=== PATIENT | female | born 1950 | race Caucasian/White ===

== ENCOUNTER → 2016-06-29 | Day surgery (SDC) | payer BC, OTHER ==
--- NOTE | 2016-06-30 13:17 | PATH ---
Cytology Non-Gynecological Report Patient Name: BRIAN BEAVER [facility]. Rec. #: [id number] /Age/Gender: 1950 (Age: 66) / F Account: [id number] Location: RADIOLOGY Taken: 06/29/2016 Received: 06/29/2016 Reported: 06/30/2016 Physicians: Sis Damon M.D. Specimen(s) Received LEFT THYROID FNA Clinical History Left thyroid nodule, 1.82 x 1.02 x 1.65 cm Final Diagnosis THYROID GLAND, LEFT LOBE, US GUIDED FINE NEEDLE ASPIRATION BIOPSY: SATISFACTORY FOR EVALUATION. NO MALIGNANT CELLS IDENTIFIED. 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 Comment: The smears and the cell block show scattered clusters of bland appearing follicular epithelial cells, some with Hurthle cell (oncocytic) change. Numerous macrophages are present, indicative of cystic change. Colloid is present. Electronically Signed Blu Vargas M.D. Gross Description Received are four air dried smears, four smears in 95% alcohol, and 20 cc of bloody fluid in formalin. Four diff-quik stained slides, four Pap stained slides and one cell block are made.
== END | disposition home or self-care (01) ==
LOC: JRADIR 08:21
PROVIDERS: ATTEND Family Medicine
PROC: 0G9G3ZX Drainage of Left Thyroid Gland Lobe, Percutaneous Approach, Diagnostic (ICD-10-PCS; principal; 2016-06-29)
PROC: BG44ZZZ Ultrasonography of Thyroid Gland (ICD-10-PCS; 2016-06-29)
DX: E04.1 Nontoxic single thyroid nodule (principal)
CPT/HCPCS: 76942; 88173; 88305-TC

== ENCOUNTER 2021-02-12 04:38 | Day surgery (SDC) | payer BC, OTHER ==
[2021-02-10 11:16] VITALS: BMI 36.6
[~2021-02-12 04:38] MED LIST: ACETAMINOPHEN 325 MG TABLET (FP) PO PRN; BSS (NA/CA/MG/K) BALANCED SALT SOLUTION OPHTH SOLN 15 ML BOTTLE OS ONE; CHONDROITIN SU A/HYALUR SOD 1 KIT IO ONE; EPINEPHrine/PF 1 MG/1 ML (1:1,000) AMPULE SQ ONE; LIDOCAINE HCL 1% PRESERVATIVE FREE - 30ML VIAL IO ONE; POVIDONE-IODINE 5% OPHTHALMIC PREP 30 ML SOLUTION OS ONE; TETRACAINE 0.5% OPHTH SOLN 2 ML BOTTLE OS ONE
[2021-02-12] MEDS ORDERED: LIDOCAINE HCL/PF 1% SDV 5ML VIAL ONE (07:33)
[2021-02-12] MEDS ORDERED: TETRACAINE 0.5% OPHTH SOLN 2 ML BOTTLE ONE (07:34)
[2021-02-12] MEDS ORDERED: POVIDONE-IODINE 5% OPHTHALMIC PREP 30 ML SOLUTION ONE (07:34)
[2021-02-12] MEDS ORDERED: TROPICAMIDE 1% OPHTH SOLN 15 ML BOTTLE ONE (10:05)
[2021-02-12] MEDS ORDERED: CYCLOPENTOLATE HCL 1% OPHTH SOLN 2 ML BOTTLE ONE (10:05)
[2021-02-12] MEDS ORDERED: OFLOXACIN 0.3% OPHTHALMIC SOLUTION 5 ML BOTTLE ONE (10:05)
[2021-02-12] MEDS ORDERED: PHENYLEPHRINE 2.5% OPTHALMIC DROP BOTTLE ONE (10:05)
[2021-02-12] MEDS ORDERED: KETOROLAC TROMETHAMINE 0.5% EYE DROP 1 DROP DROPS ONE (10:05)
[2021-02-12] MEDS: KETOROLAC TROMETHAMINE 0.5% EYE DROP 1 DROP DROPS OP SCH ×3 (10:25→10:45)
[2021-02-12] MEDS: TROPICAMIDE 1% OPHTH SOLN 15 ML BOTTLE OP SCH ×3 (10:25→10:45)
[2021-02-12] MEDS: PHENYLEPHRINE 2.5% OPHTH SOLN 15 ML BOTTLE OP SCH ×3 (10:25→10:45)
[2021-02-12] MEDS: OFLOXACIN 0.3% OPHTHALMIC SOLUTION 5 ML BOTTLE OP SCH ×3 (10:25→10:45)
[2021-02-12] MEDS: CYCLOPENTOLATE HCL 1% OPHTH SOLN 2 ML BOTTLE OP SCH ×3 (10:25→10:45)
[2021-02-12] MEDS ORDERED: MIDAZOLAM HCL 2 MG/2 ML SINGLE DOSE VIAL ONE (11:53)
[2021-02-12] MEDS ORDERED: TETRACAINE 0.5% OPHTH SOLN 2 ML BOTTLE OS ONE (12:01)
[2021-02-12] MEDS ORDERED: ONDANSETRON 4 MG/2 ML VIAL IVPUSH PRN (12:02)
[2021-02-12] MEDS ORDERED: POVIDONE-IODINE 5% OPHTHALMIC PREP 30 ML SOLUTION OS ONE (12:02)
[2021-02-12] MEDS ORDERED: LIDOCAINE HCL 1% PRESERVATIVE FREE - 30ML VIAL IO ONE (12:07)
[2021-02-12] MEDS ORDERED: BSS (NA/CA/MG/K) BALANCED SALT SOLUTION OPHTH SOLN 15 ML BOTTLE OS ONE (12:07)
[2021-02-12] MEDS ORDERED: CHONDROITIN SU A/HYALUR SOD 1 KIT IO ONE (12:11)
[2021-02-12] MEDS ORDERED: LACTATED RINGERS SOLUTION 1,000 ML IV SCH (12:15)
[2021-02-12] MEDS ORDERED: EPINEPHrine/PF 1 MG/1 ML (1:1,000) AMPULE SQ ONE (12:16)
[2021-02-12] MEDS ORDERED: ACETAMINOPHEN 325 MG TABLET (FP) ONE (12:51)
[2021-02-12 14:48] VITALS: BP 118/82; PULSE 54; TEMP 97.6
== END 2021-02-12 13:30 | disposition home or self-care (01) ==
LOC: JASU-SURG 04:38
PROVIDERS: ATTEND Ophthalmology
PROC: 08RK3JZ Replacement of Left Lens with Synthetic Substitute, Percutaneous Approach (ICD-10-PCS; principal; 2021-02-12 12:00)
DX: H26.9 Unspecified cataract (principal); E11.9 Type 2 diabetes mellitus without complications; I10 Essential (primary) hypertension
CPT/HCPCS: 82962

== ENCOUNTER 2021-02-26 05:04 | Day surgery (SDC) | payer BC, OTHER ==
[2021-02-25 13:31] VITALS: BMI 36.6
[~2021-02-26 05:04] MED LIST changes: -BSS (NA/CA/MG/K) BALANCED SALT SOLUTION OPHTH SOLN 15 ML BOTTLE OS ONE; -CHONDROITIN SU A/HYALUR SOD 1 KIT IO ONE; -EPINEPHrine/PF 1 MG/1 ML (1:1,000) AMPULE SQ ONE; -LIDOCAINE HCL 1% PRESERVATIVE FREE - 30ML VIAL IO ONE; -POVIDONE-IODINE 5% OPHTHALMIC PREP 30 ML SOLUTION OS ONE; -TETRACAINE 0.5% OPHTH SOLN 2 ML BOTTLE OS ONE
[2021-02-26] MEDS ORDERED: POVIDONE-IODINE 5% OPHTHALMIC PREP 30 ML SOLUTION ONE (07:38)
[2021-02-26] MEDS ORDERED: TETRACAINE 0.5% OPHTH SOLN 2 ML BOTTLE ONE (07:38)
[2021-02-26] MEDS ORDERED: LIDOCAINE HCL/PF 1% SDV 5ML VIAL ONE (07:38)
[2021-02-26] MEDS ORDERED: OFLOXACIN 0.3% OPHTHALMIC SOLUTION 5 ML BOTTLE ONE (10:15)
[2021-02-26] MEDS ORDERED: PHENYLEPHRINE 2.5% OPTHALMIC DROP BOTTLE ONE (10:15)
[2021-02-26] MEDS ORDERED: KETOROLAC TROMETHAMINE 0.5% EYE DROP 1 DROP DROPS ONE (10:15)
[2021-02-26] MEDS ORDERED: TROPICAMIDE 1% OPHTH SOLN 15 ML BOTTLE ONE (10:15)
[2021-02-26] MEDS ORDERED: CYCLOPENTOLATE HCL 1% OPHTH SOLN 2 ML BOTTLE ONE (10:15)
[2021-02-26] MEDS: CYCLOPENTOLATE HCL 1% OPHTH SOLN 2 ML BOTTLE OP SCH ×3 (10:25→10:37)
[2021-02-26] MEDS: KETOROLAC TROMETHAMINE 0.5% EYE DROP 1 DROP DROPS OP SCH ×3 (10:25→10:37)
[2021-02-26] MEDS: PHENYLEPHRINE 2.5% OPHTH SOLN 15 ML BOTTLE OP SCH ×3 (10:25→10:36)
[2021-02-26] MEDS: OFLOXACIN 0.3% OPHTHALMIC SOLUTION 5 ML BOTTLE OP SCH ×3 (10:25→10:37)
[2021-02-26] MEDS: TROPICAMIDE 1% OPHTH SOLN 15 ML BOTTLE OP SCH ×3 (10:25→10:36)
[2021-02-26] MEDS ORDERED: MIDAZOLAM HCL 2 MG/2 ML SINGLE DOSE VIAL ONE (12:14)
[2021-02-26] MEDS ORDERED: TETRACAINE 0.5% OPHTH SOLN 2 ML BOTTLE OD ONE (12:19)
[2021-02-26] MEDS ORDERED: POVIDONE-IODINE 5% OPHTHALMIC PREP 30 ML SOLUTION OD ONE (12:20)
[2021-02-26] MEDS ORDERED: BSS (NA/CA/MG/K) BALANCED SALT SOLUTION OPHTH SOLN 15 ML BOTTLE OD ONE (12:20)
[2021-02-26] MEDS ORDERED: CHONDROITIN SU A/HYALUR SOD 1 KIT IO ONE (12:22)
[2021-02-26] MEDS ORDERED: LIDOCAINE HCL 1% PRESERVATIVE FREE - 30ML VIAL INF ONE (12:22)
[2021-02-26] MEDS ORDERED: EPINEPHrine/PF 1 MG/1 ML (1:1,000) AMPULE SQ ONE (12:23)
[2021-02-26 13:59] VITALS: BP 129/49; PULSE 59; TEMP 96.8
== END 2021-02-26 13:50 | disposition home or self-care (01) ==
LOC: JASU-SURG 05:04
PROVIDERS: ATTEND Ophthalmology
PROC: 08RJ3JZ Replacement of Right Lens with Synthetic Substitute, Percutaneous Approach (ICD-10-PCS; principal; 2021-02-26 12:00)
DX: H26.9 Unspecified cataract (principal); I10 Essential (primary) hypertension; E11.9 Type 2 diabetes mellitus without complications; Z79.84 Long term (current) use of oral hypoglycemic drugs

== ENCOUNTER 2024-02-20 18:28 | Observation (INO) | payer OTHER ==
[2024-02-20 19:02] VITALS: BMI 36.6
[2024-02-20] MEDS ORDERED: ACETAMINOPHEN 325 MG TABLET (FP) ONE (19:13)
[2024-02-20] MEDS ORDERED: KETOROLAC TROMETHAMINE 30 MG/1 ML VIAL ONE (19:13)
[2024-02-20] MEDS ORDERED: LIDOCAINE 4% PATCH TP ONE ×2 (19:14→20:48)
[2024-02-20] MEDS: LIDOCAINE 4% PATCH TP ONE ×2 (19:40→21:09)
[2024-02-20] MEDS: ACETAMINOPHEN 325 MG TABLET (FP) PO ONE (19:40)
[2024-02-20] MEDS: KETOROLAC TROMETHAMINE 30 MG/1 ML VIAL IM ONE (19:40)
[2024-02-20 21:44] LABS: INR 1.04 (0.83-1.09); PROTHROMBIN TIME (PATIENT) 11.9 SEC (9.7-13.0)
[2024-02-20 21:47] LABS: ACTIVATED PTT 28.6 SECONDS (25.2-36.5)
[2024-02-20 21:48] LABS: BASO % 0.4 % (0-2.0); EOS % 0.3 % (0-4.5); HEMATOCRIT 41.1 % (32.4-45.2); HEMOGLOBIN 13.7 GM/dL (10.7-15.3); LYMPH % 18.4 % (8-40); MCH 29.2 pg (25.7-33.7); MCHC 33.4 g/dl (32.0-36.0); MEAN CELL VOLUME 87.4 fl (80-96); MONO % 5.7 % (3.8-10.2); NEUT % 75.2 % (42.8-82.8); PLATELET COUNT 202 10^3/uL (134-434); RDW 13.9 % (11.6-15.6); WHITE BLOOD COUNT 12.4 K/mm3 (4.0-10.0)
[2024-02-20 21:55] LABS: POTASSIUM 3.9 mmol/L (3.5-5.1)
[2024-02-20 21:57] LABS: CALCIUM 9.8 mg/dL (8.5-10.1)
[2024-02-20 21:58] LABS: ALBUMIN 3.7 g/dl (3.4-5.0); BLOOD UREA NITROGEN 25.8 mg/dL (7-18); MAGNESIUM 1.6 mg/dL (1.8-2.4)
[2024-02-20 22:01] LABS: CREATININE 1.2 mg/dL (0.55-1.3)
[2024-02-20 22:02] LABS: BILIRUBIN,TOTAL 0.5 mg/dL (0.2-1); TOT PROT 7.5 g/dl (6.4-8.2)
[2024-02-20] MEDS: LIDOCAINE PATCH REMOVAL MC SCH ×2 (22:06)
[2024-02-20] MEDS ORDERED: ACETAMINOPHEN INJECTION 100 ML ONE (22:34)
[2024-02-20] MEDS: ACETAMINOPHEN 1000 MG/100 ML BAG IVPB ONE (22:39)
[2024-02-20] MEDS ORDERED: MAGNESIUM SULFATE IN WATER 2 GM/50 ML IVPB IVPB ONE (22:54)
[2024-02-20] MEDS: MAGNESIUM SULFATE IN WATER 2 GM/50 ML IVPB IVPB ONE (23:15)
[2024-02-20] MEDS: MAGNESIUM OXIDE 400 MG TABLET (FP) PO ONE (23:22)
[2024-02-20] MEDS: MAGNESIUM 1GM/D5W - 1 GM/100 ML IVPB IVPB ONE (23:22)
[2024-02-21 00:22] LABS: EPI CELLS 35 /uL (0-25.1); HYALINE CASTS 7 /uL (0-3.1); URINE APPEARANCE CLOUDY; URINE BACTERIA 55 /uL (0-1359); URINE BILIRUBIN NEGATIVE (NEGATIVE); URINE COLOR YELLOW; URINE GLUCOSE (UA) NEGATIVE (NEGATIVE); URINE KETONE NEGATIVE (NEGATIVE); URINE LEUK ESTERASE 1+ (NEGATIVE); URINE NITRITE NEGATIVE (NEGATIVE); URINE PROTEIN 3+ (NEGATIVE); URINE UROBILINOGEN 0.2 mg/dL (0.2-1.0); URINE WBC 162 /uL (0-25.8)
[2024-02-21] MEDS ORDERED: ACETAMINOPHEN 500 MG TABLET (FP) PO PRN (00:49)
[2024-02-21] MEDS ORDERED: DOCUSATE SODIUM 100 MG CAPSULE (FP) PO PRN (00:49)
[2024-02-21] MEDS ORDERED: MELATONIN 5 MG TABLETS PO PRN (02:16)
[2024-02-21 04:13] LABS: URINE RBC 41.7 /uL (0-23.9); YEAST MODERATE (NEGATIVE)
[2024-02-21] MEDS ORDERED: LOSARTAN POTASSIUM 50 MG TABLET PO SCH (07:16)
[2024-02-21] MEDS ORDERED: ALBUTEROL SO4 HFA INHALER IH PRN (07:22)
[2024-02-21] MEDS: LEVOTHYROXINE NA 25 MCG TABLET (FP) PO SCH (07:51)
[2024-02-21] MEDS: amLODIPine BESYLATE 5 MG TABLET (FP) PO SCH (07:51)
[2024-02-21] MEDS: LOSARTAN POTASSIUM 50 MG TABLET PO SCH (07:52)
[2024-02-21 08:25] LABS: BASO % 0.5 % (0-2.0); EOS % 1.3 % (0-4.5); HEMATOCRIT 40.4 % (32.4-45.2); HEMOGLOBIN 13.3 GM/dL (10.7-15.3); LYMPH % 23.4 % (8-40); MCH 29.2 pg (25.7-33.7); MCHC 32.8 g/dl (32.0-36.0); MEAN CELL VOLUME 88.9 fl (80-96); MEAN PLT VOLUME 9.1 fl (7.5-11.1); MONO % 7.6 % (3.8-10.2); NEUT % 67.2 % (42.8-82.8); PLATELET COUNT 174 10^3/uL (134-434); RBC 4.54 M/mm3 (3.60-5.2); RDW 13.7 % (11.6-15.6); WHITE BLOOD COUNT 13.4 K/mm3 (4.0-10.0)
[2024-02-21 08:44] LABS: POTASSIUM 3.5 mmol/L (3.5-5.1)
[2024-02-21 08:47] LABS: ALBUMIN 3.3 g/dl (3.4-5.0); BLOOD UREA NITROGEN 26.8 mg/dL (7-18)
[2024-02-21 08:50] LABS: CREATININE 1.2 mg/dL (0.55-1.3)
[2024-02-21 08:52] LABS: BILIRUBIN,TOTAL 0.5 mg/dL (0.2-1); TOT PROT 6.8 g/dl (6.4-8.2)
[2024-02-21] MEDS ORDERED: metoPROLOL SUCCINATE 25 MG TAB.SR.24H (FP) PO SCH (10:00)
[2024-02-21] MEDS: ASPIRIN COATED 81 MG TABLET.EC PO SCH (10:31)
[2024-02-21] MEDS: KETOROLAC TROMETHAMINE 15 MG/ML VIAL IVPUSH PRN (10:31)
[2024-02-21] MEDS: MULTIVITAMINS (DAILY MVI) TABLET (FP) PO SCH (10:32)
[2024-02-21] MEDS: FLUTICASONE PROP 0.05% 16 GM NASAL SPRAY NS SCH (10:40)
[2024-02-21] MEDS: ATORVASTATIN CA 20 MG TABLET (FP) PO SCH (22:12)
[2024-02-21] MEDS: GABAPENTIN 100 MG CAPSULE PO SCH (22:12)
[2024-02-21] MEDS: PRAMIPEXOLE DIHYDROCHLORIDE 0.25 MG TABLET PO SCH (22:13)
[2024-02-22 08:21] LABS: BASO % 0.5 % (0-2.0); EOS % 2.3 % (0-4.5); HEMATOCRIT 41.3 % (32.4-45.2); HEMOGLOBIN 13.4 GM/dL (10.7-15.3); LYMPH % 23.5 % (8-40); MCH 29.1 pg (25.7-33.7); MCHC 32.5 g/dl (32.0-36.0); MEAN CELL VOLUME 89.5 fl (80-96); MEAN PLT VOLUME 9.1 fl (7.5-11.1); MONO % 7.6 % (3.8-10.2); NEUT % 66.1 % (42.8-82.8); PLATELET COUNT 167 10^3/uL (134-434); RBC 4.62 M/mm3 (3.60-5.2); WHITE BLOOD COUNT 11.5 K/mm3 (4.0-10.0)
[2024-02-22 08:22] LABS: IRON SERUM 40 ug/dL (50-175); TOTAL IRON BINDING CAPACITY 384 ug/dL (250-450)
[2024-02-22] MEDS: ACETAMINOPHEN 500 MG TABLET (FP) PO PRN (09:50)
[2024-02-22 12:06] LABS: ALBUMIN 3.4 g/dl (3.4-5.0); BILIRUBIN,TOTAL 0.5 mg/dL (0.2-1); BLOOD UREA NITROGEN 27.8 mg/dL (7-18); CALCIUM 9.6 mg/dL (8.5-10.1); CREATININE 1.1 mg/dL (0.55-1.3); PHOSPHOROUS 3.7 mg/dL (2.5-4.9); POTASSIUM 4.3 mmol/L (3.5-5.1); TOT PROT 7.1 g/dl (6.4-8.2)
[2024-02-22] MEDS: METOPROLOL TARTRATE 25 MG TABLET (FP) PO SCH (12:47)
[2024-02-22] MEDS: NITROFURANTOIN MACROCRYSTAL 50 MG CAPSULE (FP) PO SCH (18:10)
[2024-02-22] MEDS: amLODIPine BESYLATE 5 MG TABLET (FP) PO ONE (22:54)
[2024-02-22] MEDS: PRAMIPEXOLE DIHYDROCHLORIDE 0.25 MG TABLET PO SCH (22:54)
[2024-02-23 09:01] VITALS: RESP 18
[2024-02-23] MEDS: METOPROLOL TARTRATE 25 MG TABLET (FP) PO SCH (09:02)
[2024-02-23] MEDS: amLODIPine BESYLATE 5 MG TABLET (FP) PO SCH (09:03)
[2024-02-23] MEDS: IRON SUCROSE INJECTION 200 MG in SODIUM CHLORIDE 100 ML IVPB ONE (13:24)
[2024-02-23 14:25] VITALS: BP 171/59; PULSE 55; TEMP 97.7
== END 2024-02-23 16:57 | disposition home health service (06) ==
LOC: JER 18:28 → JERBED 20:42 → J8W 02-21 00:37
PROVIDERS: ADMIT Internal Medicine; ATTEND Family Medicine
PROC: 3E033NZ Introduction of Analgesics, Hypnotics, Sedatives into Peripheral Vein, Percutaneous Approach (ICD-10-PCS; principal; 2024-02-20)
PROC: 3E033NZ Introduction of Analgesics, Hypnotics, Sedatives into Peripheral Vein, Percutaneous Approach (ICD-10-PCS; 2024-02-20)
PROC: 3E0233Z Introduction of Anti-inflammatory into Muscle, Percutaneous Approach (ICD-10-PCS; 2024-02-20)
PROC: 3E033GC Introduction of Other Therapeutic Substance into Peripheral Vein, Percutaneous Approach (ICD-10-PCS; 2024-02-20)
DX: M51.16 Intervertebral disc disorders with radiculopathy, lumbar region (principal); D72.829 Elevated white blood cell count, unspecified; R74.8 Abnormal levels of other serum enzymes; R94.5 Abnormal results of liver function studies; R93.2 Abnormal findings on diagnostic imaging of liver and biliary tract; G89.29 Other chronic pain; I10 Essential (primary) hypertension; E78.5 Hyperlipidemia, unspecified; I38 Endocarditis, valve unspecified; Z86.19 Personal history of other infectious and parasitic diseases; E03.9 Hypothyroidism, unspecified; J44.9 Chronic obstructive pulmonary disease, unspecified; Z87.828 Personal history of other (healed) physical injury and trauma; Z88.5 Allergy status to narcotic agent
CPT/HCPCS: 36415; 71045-TC-FY; 72148-TC; 80053; 81003; 82962; 83540; 83550; 83735; 84100; 84443; 85025; 85610; 85730; 87040; 87086; 93005; 93010; 97116-GP; 97161-GP; 99285-25; G0378; J0131; J1756